=== PATIENT | male | born 1990 | race Caucasian/White ===

== ENCOUNTER 2024-08-14 09:36 | Emergency (ER) | payer OTHER ==
[~2024-08-14] VITALS: Ht 165.1 cm; Wt 54.4 kg
[2024-08-14 09:36] VITALS: BP_SYST 165; PULSE 112; RESP 18; TEMP 97.2; O2SAT 95
[2024-08-14] MEDS: TETRACAINE HCL/PF 0.5% OPHTHALMIC DROPS 4 ML OP ONE (10:06)
[2024-08-14] MEDS: FLUORESCEIN SODIUM 1 MG OPHTHALMIC STRIP OP ONE ×2 (10:06)
[2024-08-14] MEDS ORDERED: ERYEYE LEFT EYE (10:59)
[2024-08-14] MEDS ORDERED: DIPHTH,PERTUSS(ACELL),TET VAC 0.5 ML VIAL (Tdap) I.M. ONE (11:39)
[2024-08-14] MEDS: DIPHTH,PERTUSS(ACELL),TET VAC 0.5 ML VIAL (Tdap) I.M. ONE (11:39)
[2024-08-14 12:05] VITALS: BP_SYST 137; PULSE 73; RESP 18; TEMP 98.2; O2SAT 97
== END 2024-08-14 12:07 | disposition home or self-care (01) ==
LOC: SED 09:36
DX: S05.02XA Injury of conjunctiva and corneal abrasion without foreign body, left eye, initial encounter (principal); S05.01XA Injury of conjunctiva and corneal abrasion without foreign body, right eye, initial encounter; T59.3X3A Toxic effect of lacrimogenic gas, assault, initial encounter; R00.0 Tachycardia, unspecified; Z23 Encounter for immunization; Y08.89XA Assault by other specified means, initial encounter; Y93.89 Activity, other specified; Y92.89 Other specified places as the place of occurrence of the external cause; Y99.8 Other external cause status
CPT/HCPCS: 90715; 99283